=== PATIENT | female | born 1975 | race Caucasian/White ===

== ENCOUNTER 2024-07-18 20:16 | Emergency (ER) | payer OTHER, MEDICAID, SELFPAY ==
--- NOTE | ~2024-07-18 | CT_ITS ---
CT abdomen pelvis wo con Ordering provider: Kaelyn Hernandez PA-C History: 49 years Female with . r flank pain, lower abd pain, uti . Comparison: None. Technique: CT abdomen and pelvis without IV and without oral contrast. Automated exposure control and iterative reconstruction technique were employed. The dose-length product was 1474.72 mGy-cm. Findings: VISUALIZED LOWER CHEST: Normal. UPPER ABDOMINAL ORGANS: Liver: Hepatomegaly. Gallbladder: Status post cholecystectomy. Spleen: Normal. Stomach/duodenum: Normal. Pancreas: Normal. Adrenals: Normal. Kidneys: Normal. PELVIC ORGANS: The bladder is underfilled. BOWEL AND MESENTERY: Colon: No evidence of diverticulitis. Normal appendix. Small Bowel: Normal. No obstruction. Peritoneum/mesentery: No free air or free fluid. No mesenteric lymphadenopathy. RETROPERITONEUM: Normal aorta. No retroperitoneal lymphadenopathy. MUSCULOSKELETAL: Superficial soft tissues: The superficial soft tissues are normal. Bones: Age appropriate degenerative changes of the spine. IMPRESSION: 1. No evidence of appendicitis, diverticulitis or intestinal obstruction. No renal stones. 2. Hepatomegaly. Reviewed, dictated and finalized at location A. IMPRESSION: 1. No evidence of appendicitis, diverticulitis or intestinal obstruction. No r enal stones. 2. Hepatomegaly.
[2024-07-18 20:23] VITALS: BP 152/64; PULSE 91; RESP 16; TEMP 36.1; O2SAT 100
[2024-07-18 21:03] LABS: Basophils Percent Auto 0.3 % (0.2-1.2); Eosinophils Absolute Auto 0.2 K/mm3 (0-0.3); Hematocrit 40.5 % (37.0-47.0); Hemoglobin 12.7 g/dL (12.0-15.0); Immature Granulocyte Absolute 0.05 K/mm3 (0.00-0.031); Immature Granulocyte Percent A 0.4 % (0-0.5); Lymphocytes Absolute Auto 2.88 K/mm3 (0.9-3.2); Lymphocytes Percent Auto 25.6 % (18.3-44.2); Mean Corpuscular HGB Conc 31.4 g/dl (32-36); Mean Corpuscular Volume 95.5 fl (80-100); Mean Platelet Volume 9.4 fl (7.4-10.4); Monocytes Absolute Auto 0.9 K/mm3 (0.1-0.6); Monocytes Percent Auto 7.7 % (2.6-8.5); Neutrophils Absolute Auto 7.2 K/mm3 (1.3-6.7); Platelet Count Result 347 k/mm3 (150-375); Red Blood Count 4.24 M/mm3 (4.2-5.4); White Blood Count 11.2 K/mm3 (4.5-10.0)
[2024-07-18 21:08] LABS: Add Urine Microscopic? YES; Appearance Urine Cloudy (Clear); Bacteria Urine 4+ /hpf; Bilirubin Urine Negative (Negative); Blood Urine 3+ (Negative); Color Urine Yellow (Yellow); Glucose Urine UA Negative (Negative); Ketones Urine Negative (Negative); Leukocyte Esterase Ur 2+ LEU/UL (Negative); Nitrate Urine Positive (Negative); Non Pathogenic Casts 0-2; Protein Urine 1+ mg/dL (Negative); Squamous Epithelial Cell Urine Occasional /hpf (Few); WBC Urine 51-100 /hpf (0-3); pH Urine 6.5 (5.0-9.0)
[2024-07-18 21:26] LABS: Alanine Aminotransferase 20 U/L (6-35); Albumin Level 3.9 g/dL (3.5-5.1); Alkaline Phosphatase 82 U/L (38-126); Anion Gap 5 mmol/L (4-12); Aspartate Amino Transferase 18 U/L (14-36); Bilirubin,Total 0.1 mg/dL (0.2-1.3); Blood Urea Nitrogen 13 mg/dL (7-17); Calcium 9.3 mg/dL (8.4-10.2); Carbon Dioxide 29 mmol/L (22-30); Chloride 104 mmol/L (98-107); Estimated CRCL calculation 108 ml/min; Estimated Glomerular Filt Rate > 60; Glucose 105 mg/dL (65-110); Potassium 3.8 mmol/L (3.4-5.0); Sodium 138 mmol/L (137-145)
[2024-07-18 21:37] VITALS: BP 124/64; PULSE 67; RESP 16; O2SAT 97
--- OUTSIDE RECORDS SUMMARY | 2024-07-18 21:55 | XMS_ITS | Encounter Summary ---
Author Organization [facility] Address [facility] [place] [address] Care Team Providers Care Warehouse Manager Name Role Phone None, Provider Primary Care Provider Unavaila ble Encounter Details Date Type Department Care Team (Late st Contact Info) Description 06/01/2017 Abstract SMD CONVERSION [address] [facility], [place] [address] , Generic Conversion, Social History Tobacco Use Types Packs/Day Years Used Date Smoking Tobacco: Never Assessed Comments Unknown Sex and Gender Information Value Date Recorded Sex Assigned at Not on file Legal Sex Female 11:17 PM [employer] Gender Identity Not on file Sexual Orientation Not on file documented as of this encounter Plan of Treatment Not on file documented as of this encounter Visit Diagnoses Not on filedocumented in this encounter Care Teams Warehouse Manager Relationship Specialty Start Date End Date None, Provider, PCP - General UNKNOWN PHYSICIAN SPECIALTY 11/19/23 documented as of this encounter
--- OUTSIDE RECORDS SUMMARY | 2024-07-18 21:55 | XMS_ITS | Continuity of Care Document ---
Author Organization Jac [facility]ENSA[facility] Address [address] [facility] [address] [place] [address] Phone Care Team Providers Care Therapy Coordinator Name Role Phone David PT,DPT, Kamala Unavailable Unavaila ble Procedures Procedure Date THERAPEUTIC EXERCISES MANUAL THERAPY FUNC ACTIVITY HOT/COLD PACK PT EVALUATION THERAPEUTIC EXERCISES MANUAL THERAPY FUNC ACTIVITY PT RE-EVALUATION MANUAL THERAPY HOT/COLD PACK THERAPEUTIC EXERCISES MANUAL THERAPY HOT/COLD PACK THERAPEUTIC EXERCISES MANUAL THERAPY HOT/COLD PACK THERAPEUTIC EXERCISES MANUAL THERAPY FUNC ACTIVITY 15 MIN HOT/COLD PACK THERAPEUTIC EXERCISES MANUAL THERAPY FUNC ACTIVITY 15 MIN HOT/COLD PACK PT EVALUATION THERAPEUTIC EXERCISES MANUAL THERAPY FUNC ACTIVITY 15 MIN HOT/COLD PACK Advance Directives Directive Yes / No Effective Date File Name No Information Encounters Encounter Description Practice Location Reason(s) For Visit Diagnoses Date Provider Providers Copied on Encounter Jac [facility]SA[facility], [address], [place], [place], [id number], [place] tel:[phone] [place] No Information 5 David Wray. [address] [place], [address], [place]. tel: [phone] [facility], [address] [address], [place], [place], [id number], [place] tel:[phone] [place] No Information 5 Levi Joo. [address] [place], [address], . tel: [phone] [facility], [address] [address], [place], [place], [id number], [place] tel:[phone] [place] Unspecified site of foot sprainAchilles bursitis or tendinitis 5 Levi Joo. [address] [place], [address], [place]. tel: [phone] [facility], [address] [address], [place], [place], [id number], tel:[phone] [place] No Information 2 3 Aleks Ford. [address] [place], [address], [place]. tel: [phone] Referring Provider: [place], [address]. tel:[phone] [facility], [address] [address], [place], [place], [id number], [place] tel:[phone] [place] No Information 0-201 3 Aleks Ford. [address] [place], [address], [place]. tel: [phone] Referring Provider: Camila Leonard[address] [place], [address]. tel:[phone] [facility], [address] [address], [place], [place], [id number], [place] tel:[phone] [place] No Information 8-201 3 Aleks Ford. [address] [place], [address], . tel: [phone] Referring Provider: Camila Leonard[address] [place], [address]. tel:[phone] [facility], [address] [address], [place], [place], [id number], tel:[phone] [place] No Information 3 Aleks Ford. [facility] [place], [address], . tel: [phone] Referring Provider: Dina Leonard [address] [place], [place], [facility]. tel:[phone] [facility], [address], [id number], tel:[phone] [place] No Information 3 Aleks Ford. [facility] [place], [address], . tel: [phone] Referring Provider: Dina Leonard [address] [place], [place], [facility]. tel:[phone] [facility], [address], [id number], tel:[phone] [place] Prepatellar bursitisDerangement of lateral meniscus, unspecified 3 Aleks [place]. [facility] [place], [address], . tel: [phone] Referring Provider: [place], [address]. tel:[phone] Family History Family Member Type Diagnosis Age At Onset No Information Payers Payer name Insurance type Covered libertarian ID Authoriza tion(s) No Information Social History Type Description Quantity Date Captured Comments Sex Female Smoking Status No Information Chief Complaint And Reason For Visit No Information Reason For Referral Reason For Referral No Information History Of Present Illness Encounter Date Complaint History Of Prese nt Illness No Information Functional Status Date Functional Assessmen t No Information Instructions Date Instruction Additional Infor mation No Information Assessments Type Assessment Date No Information Patient Care Teams Name Effective Dates (start - stop) Status Members No Information
--- OUTSIDE RECORDS SUMMARY | 2024-07-18 21:55 | XMS_ITS | Data Portability ---
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 The patient reports that overall they are mostly bothered by the new onset of pain. She states that she was playing basketball on 11/08/2023, when she unfortunately landed on the concrete with her hand. The patient is looking forward to discussing her plan of care moving forward. Onset: This pain was sudden with onset after a trauma. Duration: This is been going on since the mentioned trauma. Quality: Pain since the trauma overall. Severity: The patient reports the pain is constantly severe. Sleep: The patient's sleep is greatly impacted. Prior Imaging: The patient has had a prior x-ray which we reviewed today. Prior Therapy: The patient has not completed therapy because and the clinical situation is not indicated. Prior Injection: An injection would not be appropriate this clinical situation. Bracing: The patient is currently wearing a brace as directed and is tolerating this well. PHYSICAL EXAM Right hand: No neurovascular compromise of the extremity. Sensation Intact To Light Touch median ulnar radial and axial distributions with the ability to prove motor function of the extremity as well. SILT med uln rad distributions of the hand. No severe skin or wound breakdown. Range of motion was deferred due to the patient's fracture. IMAGING Most recent images reviewed in the computer, I agree with the radiologists interpretation. We had those images available in the room today. Discussed with the patient in detail and referenced any available reports. ASSESSMENT Right 5th metacarpal fracture. PLAN We discussed the overall clinical findings as well as reviewed the patients course in the digital record with the patient. We discussed the expected prognosis and the plan moving forward. We reviewed anything we could change or may have changed along the way with the patient and offered a time for feedback. Both the patient and myself are informed in my estimation, based on the encounter today. We discussed some of the complicating factors that could affect this patient's course fdc. At the end of the conversation, I, again gave the patient a chance to ask any questions and answered them to the best of my ability. We placed any orders together in the room and confirmed our plan for moving forward. The patient is going to continue home care whenever possible and will call us if they worsen. We provided the patient with contact info and offered the patient information to be able to reach back out if they had issues. The patient was comfortable with that plan moving forward. Unfortunately, at this point we are going to move forward with surgical intervention. At this point, we discussed those risks and benefits and the patient opted to proceed. I find this decision to be informed and reasonable based on the patient's overall clinical picture. The patient understands and agrees with this plan of care moving forward and would like to proceed at this time. At the end of this visit, we were diligent to make sure the patient is equipped with our contact information and understands we are here to help them through this process. PLAN TO PROCEED WITH Right ORIF vs CRPP Saturday RISKS AND BENEFITS We had a discussion regarding the risks, benefits, and alternatives of the above proposed procedure. We discussed the findings together in detail and we reviewed them in the room so that the patient had a chance to ask any questions about the findings. We discussed how these findings influenced the selection of the proposed intervention and how that intervention may possibly improve their overall situation. We also discussed the possibility that the intervention does not obtain the desired effect. We had a discussion about the possibility of infection, failure of the surgical procedure, need for further surgery, injury to the bone or soft tissues during the procedure, as well as the possibility of nerve or artery damage from the proposed intervention. We discussed how the patient's medical status could influence the final decision to have surgery based on any input from additional providers. We discussed the patient's medications/condit ions as they listed them. We reviewed the intake for,/computerized medical history/other provider notes together in an attempt to get the most complete medical picture of the patient and discussed additional findings as needed. After our discussion the patient was allowed a chance to ask any questions, and I was allowed to answer them to the best of my ability. After the patient was provided the above information in an honest and open fashion, the patient/family independently decided to proceed with surgery. We provided contact information for our office so that the patient could contact us if they have any questions or would like to discuss the procedure further before we see them again. We discussed that we will perform a secondary audit of the patient's overall condition and readiness for surgery. We discussed that the results of additional evaluation my change out overall plan. We informed the patient that we do a preop audit near the date of surgery and we call them to discuss what we've found. At the end of this discussion, the patient had no additional questions. [email or web address] Not available 11/15/2023 10:13:42 12/02/2023 12/02/2023 HISTORY OF PRESE NT ILLNESS: Today the patient presents today to office today for 2-week followup after a right CRPP of her 5th metacarpal. 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 She is very concerned about her return to work plan due to her financial responsibilities. She asks if we can pull pins today so she can return to work. They have been following incisional care instructions as provided postoperatively and report the incision seems to be healing without incident. There is some expected tenderness, but they are overall happy with their recovery up to this point. We discussed their status at this visit. We discussed alarming signs including infection or other complications in detail. Patient reports no marked issues over the past few weeks except some manageable expected pain. They are here today to discuss the next steps of care. PHYSICAL EXAMINATION: CONST: Alert and oriented. No acute distress. ENT: Able to converse without significant issue. RESP: Breathing quietly on room air. CV: Good peripheral perfusion with a regular rate and acceptable capillary refill. GI: Abdomen not distended. SKIN: No jaundice. Warm and dry. PSYCH: Stable mood and affect. NEURO: No obvious cognitive difficulty. ORTHOPEDIC EXAM: Surgical upper extremity: The incision well-approximated and appropriately healing without evidence of wound break down. Sensation grossly intact across median, ulnar, radial, and lateral antebrachial cutaneous nerve distributions. Motion FingerSome stiffness present but demonstrates active digital flexion and extension with expected level of ability. Hand Wrist range of motion is slightly limited and pronosupination is full Acceptable capillary refill. Incision: acceptable with no signs of infection Reviewed pertinent diagnostic tests, lab work, and imaging. These were reviewed with the patient. Imaging: The imaging available was reviewed with the patient. ASSESSMENT: The patient is overall progressing reasonably well from the above-mentioned procedure PLAN: Wound management: wound care teaching was done I explained the timeline for bony healing and the timeline for pins removal. She was disappointed as she would really like to return to work. I explained that we could certainly provide her with protective bracing if she is able to return to work with restrictions. She is elated with this plan of care and agrees. We also discussed pin site care. We talked about signs and symptoms to be aware of and when to contact our office. We encouraged the patient to contact us with any issues. We discussed how to reach the office. We discussed that we are available for them. We discussed that we are always welcome to inquiries and always happy to see him back. We talked about the portal. They were instructed to call our office with any questions or concerns in the meantime. Followup: Follow up in 3 weeks with repeat imaging and potential pin removal. [email or web address] Not available 12/02/2023 18:16:03 12/11/2023 12/11/2023 HISTORY OF PRESE NT ILLNESS June presents to the office today for a followup after her right small finger closed reduction and purcutaneous pinning. They have been following incisional care instructions as provided postoperatively and report the incision seems to be healing without incident. She mentions that she has been having pain at her pin and is able to move the pin in and out of her hand. We discussed their status at this visit. We discussed alarming signs including infection or other complications in detail. Patient reports no marked issues over the past few weeks except some manageable expected pain. They are here today to discuss the next steps of care. PHYSICAL EXAMINATION CONST: Alert and oriented. No acute distress. ENT: Able to converse without significant issue. RESP: Breathing quietly on room air. CV: Good peripheral perfusion with a regular rate and acceptable capillary refill. GI: Abdomen not distended. SKIN: No jaundice. Warm and dry. PSYCH: Stable mood and affect. NEURO: No obvious cognitive difficulty. ORTHOPEDIC EXAM Right 5th finger: The incision well-approximated and appropriately healing without evidence of wound break down. Sensation grossly intact across median, ulnar, radial, and lateral antebrachial cutaneous nerve distributions. Acceptable capillary refill. The incision is acceptable with no signs of infection. Reviewed pertinent diagnostic tests, lab work, and imaging. These were reviewed with the patient. ASSESSMENT Status post right 5th closed reduction and purcutaneous pinning. PLAN Wound management: We proceeded to pull a pin today, the patient tolerated this well. Pin site care was discussed today. We encouraged the patient to contact us with any issues. We discussed how to reach the office. We discussed that we are available for them. We discussed that we are always welcome to inquiries and always happy to see them back. We talked about the portal. They were instructed to call our office with any questions or concerns in the meantime. We provided the patient with a week of antibiotics today. We will plan for the patient to followup again in 2 weeks to obtain repeat images and discuss their plan of care at that time. The patient understands and agrees with this plan of care moving forward and would like to proceed at this time. At the end of this visit, we were diligent to make sure the patient is equipped with our contact information and understands we are here to help them through this process. [email or web address] Not available 12/12/2023 15:29:06 12/23/2023 12/23/2023 HISTORY OF PRESE NT ILLNESS June presents to the office today for a 6 week followup after her right small finger closed reduction and purcutaneous pinning. They have been following incisional care instructions as provided postoperatively and report the incision seems to be healing without incident. There is some expected tenderness, but they are overall happy with their recovery up to this point. She does mention today that she has nicotine exposure. We discussed their status at this visit. We discussed alarming signs including infection or other complications in detail. Patient reports no marked issues over the past few weeks except some manageable expected pain. They are here today to discuss the next steps of care. PHYSICAL EXAMINATION CONST: Alert and oriented. No acute distress. ENT: Able to converse without significant issue. RESP: Breathing quietly on room air. CV: Good peripheral perfusion with a regular rate and acceptable capillary refill. GI: Abdomen not distended. SKIN: No jaundice. Warm and dry. PSYCH: Stable mood and affect. NEURO: No obvious cognitive difficulty. ORTHOPEDIC EXAM Right 5th finger: The incision well-approximated and appropriately healing without evidence of wound break down. Sensation grossly intact across median, ulnar, radial, and lateral antebrachial cutaneous nerve distributions. Some stiffness present but demonstrates active digital flexion and extension with expected level of ability. Acceptable capillary refill. The incision is acceptable with no signs of infection. Reviewed pertinent diagnostic tests, lab work, and imaging. These were reviewed with the patient. Imaging: The imaging in the computer was reviewed including any new imaging. ASSESSMENT Status post right 5th finger closed reduction and purcutaneous pinning. PLAN Wound management: The pins were removed in the office. We discussed pin site care, the patient tolerated this well. We also discussed scar modalities to include the use of massage with vitamin E cream or can cocoa butter. The patient understands these instructions. We will plan for followup per protocol. Therapy: The patient will be pursuing therapy. We discussed the benefits of occupational hand therapy. We discussed the goals. We discussed the overall clinical picture. We discussed how that may impact their overall outcome. We encouraged the patient to contact us with any issues. We discussed how to reach the office. We discussed that we are available for them. We discussed that we are always welcome to inquiries and always happy to see them back. We talked about the portal. They were instructed to call our office with any questions or concerns in the meantime. 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 We will plan for the patient to followup again in 4-6 weeks to obtain repeat images, discuss therapy and discuss their plan of care at that time. The patient understands and agrees with this plan of care moving forward and would like to proceed at this time. At the end of this visit, we were diligent to make sure the patient is equipped with our contact information and understands we are here to help them through this process. [email or web address] Not available 12/25/2023 11:35:50 02/04/2024 02/04/2024 HISTORY OF PRESE NT ILLNESS: The patient presents today for to the office today for greater than 2 months out from post-op follow-up after a right surgical treatment of a fracture. They have been following incisional care instructions as provided postoperatively and report the incision seems to be healing without incident. She seems to be doing great and is very happy with her progress. She has completed therapy and has been released. We discussed their status at this visit. We discussed alarming signs including infection or other complications in detail. Patient reports no marked issues over the past few weeks except some manageable expected pain. They are here today to discuss the next steps of care. PHYSICAL EXAMINATION: CONST: Alert and oriented. No acute distress. ENT: Able to converse without significant issue. RESP: Breathing quietly on room air. CV: Good peripheral perfusion with a regular rate and acceptable capillary refill. GI: Abdomen not distended. SKIN: No jaundice. Warm and dry. PSYCH: Stable mood and affect. NEURO: No obvious cognitive difficulty. ORTHOPEDIC EXAM: Surgical upper extremity: The incision well-approximated and appropriately healing without evidence of wound break down. Sensation grossly intact across median, ulnar, radial, and lateral antebrachial cutaneous nerve distributions. Motion FingerThe range of motion at the IP and MCP joints is full. Hand Wrist range of motion is full and pronosupination is full Acceptable capillary refill. Incision: acceptable with no signs of infection Reviewed pertinent diagnostic tests, lab work, and imaging. These were reviewed with the patient. Imaging: The imaging available was reviewed with the patient. ASSESSMENT: The patient is overall progressing reasonably well from the above-mentioned procedure PLAN: We also discussed scar modalities to include the use of massage with vitamin E cream or can cocoa butter. The patient understands these instructions. We will plan for follow-up per protocol. We encouraged the patient to contact us with any issues. We discussed how to reach the office. We discussed that we are available for them. We discussed that we are always welcome to inquiries and always happy to see him back. We talked about the portal. They were instructed to call our office with any questions or concerns in the meantime. Followup: Follow-up 6 months [email or web address] Not available 02/04/2024 15:39:18 Plan of Treatment Reminders Order Date Submit Date Provider Last Modified By Organization Details Last Modified Time Details Appointments Establish ed Patient 10.EST 2024 01:20P M Dr. Torsten Davis Not available Not available Not available Lab None recorded. Referral occupatio nal therapist referral - Rt hand exos for FX 2023 [email or web address] Not available 11/13/2023 16:03:11 Procedures None recorded. Surgeries None recorded. Imaging None recorded. Medication Orders tramadol 50 mg tablet 2023 [id number], [address], [place], [place], [id number], 11/14/2023 13:43:30 Patient TargetsNo targets recorded. Patient InstructionsNo instructions recorded. Reason for Referral Occupational Therapist Refer ral for Pain in right hand Rt hand exos for FX Referring Physician: Torsten Davis, Orthopedics, Encounter Date: 11/13/2023 Results Created Date Observation Date Name Description Value Unit Range Abnormal Flag Note LastModifiedBy Organization Detail LastModifiedTime 11/13/1911/13/2023 XR, hand, 3 [place] [address] Teleph one [phone] Name: Shirin Loo [id number] am Date: 2023 Age: 48Phys ician: Manuelito mckinnon MD, Torsten : 1975Ex aminat ion: XR HAND COMPLE TE RIGHT EXAMIN ATION: XR HAND COMPLE TE RIGHT HISTOR Y: Injury to right hand . Follow up imagin g right proxim al 5th metaca rpal fractu re. COMPAR TRISTAN: 024. FINDIN GS: There is redemo nstrat ion of a commin uted intra- articu lar fractu re involv ing the base of the fifth metaca rpal. There is mild displa cement of fractu re fragme nts. Overal l appear ance is simila r to the prior study. No disloc ations . IMPRES MELIZA: Fractu re at the base of the fifth metaca rpal simila r in appear ance to the previo us study. Electr onical ly signed in [employer] cribe by: Michael Prieto MD on:10/17 9:43 AM cc: Page PAGE 1 of [facility] 1 [email or web address] Sc Only - [facility] Radiology [address] [place], [address], 11/21/2023 23:09:40 11/13/19 24 11/07/2023 XR, forea rm No observ ation record ed. [email or web address] Not Available 2023 18:27:38 11/13/19 24 11/07/2023 XR, wrist , 3 or more view No observ ation record ed. [email or web address] Not Available 2023 18:28:58 12/02/19 24 12/02/2023 XR, hand, 3 [place] [address] Teleph one [phone] Name: Eze June [id number] am Date: 2023 Age: 48Phys ician: Armstr LILIANA tapia, Asmita : 1975Ex aminat ion: XR HAND COMPLE TE RIGHT EXAMIN ATION: Right hand x-ray, 3 views HISTOR Y: Follow up 2 weeks post-o p right hand surger y. COMPAR TRISTAN: 024 FINDIN GS: Cast materi al overli es the right hand which obscur es osseou s detail . Percut aneous pins are presen t throug h the fifth metaca rpal. 4 pins are presen t total. Commin uted right fifth metaca rpal base fractu re is again noted. 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 Electr onical ly signed in [employer] cribe by: PARTH MILLER MD on:11/16 3:32 PM cc: Page PAGE 1 of [facility] 1 [email or web address] Sc Only - S c Radiology [address] [place], [address], 12/09/2023 10:35:19 10/08/20 24 12/23/2023 XR, hand, 3 or more view [facility] [address] [address] Teleph one Name: Shirin Loo [id number] am Date: 2023 Age: 48Phys ician: Manuelito mckinnon MD, David : 1975Ex aminat ion: XR HAND COMPLE TE RIGHT EXAM: XR HAND COMPLE TE RIGHT HISTOR Y: 6 week follow up for right hand surger y after a basket ball injury to hand. COMPAR TRISTAN: 024 FINDIN GS: Splint ing materi al has been remove d. The patien t is status post engineering supervisor al fixati on of a fifth metaca rpal fractu re with hardwa re patrizia sing the fourth and fifth metata rsals. Two of the fixati on pins of been remove d. The hardwa re is intact . The osseou s alignm ent is unchan ged. No new fractu res are seen. IMPRES MELIZA: Status post engineering supervisor al fixati on of fifth metaca rpal fractu re withou t compli cation Electr onical ly signed in [employer] cribe by: ARIANA Horton MD on:12/24/2023 7:51 AM cc: Page PAGE 1 of [facility] 1 [email or web address] Sc Only - [facility] Radiology [address] [place] [address], [id number], 01/09/2024 23:03:47 02/04/20 24 02/04/2024 XR, hand, 3 or more view [facility] [address] [address] Teleph one Name: Shirin Loo [id number] am Date: 2023 Age: 48Phys ician: Manuelito mckinnon MD, David : 1975Ex aminat ion: XR HAND COMPLE TE RIGHT EXAM: XR HAND COMPLE TE RIGHT HISTOR Y: Post-o p follow up on right 5th MCP ORIF, date of surger y was 11/19/23 . TECHNI QUE: 3 views the right hand. COMPAR TRISTAN: Radiog raphs of the right hand 024. FINDIN GS: Interv al remova l of the fixati ng pins patrizia sing the fifth and fourth metaca rpals. There are ghost tracks from the prior fixati ng pins. There has been furthe r callus format ion of the fractu re at the base of the fifth metaca rpal. No new fractu re is seen. IMPRES MELIZA: 1. Healin g fractu re of the base of the fifth metaca rpal. 2. Interv al remova l of the fixati ng pins. Ghost tracts are seen. Electr onical ly signed in [employer] cribe by: Samantha Wharton on: 4 2:50 PM cc: Page PAGE [facility] 1 [email or web address] Sc Only - [facility] [address] [place] [address], [id number], 02/06/2024 23:04:42 Result Notes None recorded. Problems Name Problem SNOMED Code Status Onset Date Resolution Date Notes Provider Name and Address Organization Details Recorded Time Pain in right hand 8170385452970 09 Active [address] [facility] 4 13:07:30 Closed fracture of base of fifth metacarpal 250278864 Active [address] 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 4 17:00:34 Postoperati ve pain 201149610 Active [address] [facility] 4 16:51:19 Closed fracture of fifth metacarpal 780444522 Active [address] [facility] 02:25:31 Notes:Some problems listed i n Document: #[id number] could not be added to this patient's chart. Please review this document and add these problems to the patient's chart manually as needed. Problem Notes None recorded. Procedures Surgical History Date Name Laterality Status Provider Name and Address Organization Details Recorded Time Removal of gallbladder completed Not Available Health Note 01/28/2024 15:43:02 Partial hysterectomy completed Not Available Health Note 01/28/2024 15:43:02 Imaging Results Imaging Date Name Status LastModified by Organiz ation Details LastModified Time 11/13/2023 XR, hand, 3 or more view completed [email or web address] [facility] Only - [facility] [address] [place] [address], [id number], 11/21/2023 23:09:40 11/07/2023 XR, forearm completed Information n ot available 11/13/2023 18:27:38 11/07/2023 XR, wrist, 3 or more view completed Information not available 11/13/2023 18:28:58 12/02/2023 XR, hand, 3 or more view completed [email or web address] [facility] Only [facility] [address] [place] [address], [id number], 12/09/2023 10:35:19 12/23/2023 XR, hand, 3 or more view completed [email or web address] [facility] Only - [facility] [address] [place] [address], [id number], 01/09/2024 23:03:47 02/04/2024 XR, hand, 3 or more view completed [email or web address] [facility] Only - [facility] [address] [place] [address], [id number], 02/06/2024 23:04:42 Procedure Notes None recorded. Medical Equipment None Reported. Allergies Allergen ID Allergen Name Allergen Category Reaction Reaction Severity Criticality Documentation Date Start Date Code Code System Note Provider Name and Address Organization Details Recorded Time 8767735 codeine medicatio n Not available Not available Not available 04/17/20232014 2670 RxNorm Comme nt: React ion Date: 25 Jul 2009 ; Not Available [facility] 04[facility] Medications Name Sig Start Date Stop Date Status Note LastModified by Organization Details LastModified Time cyclobenzapr ine 10 mg tablet TAKE 1 TABLET BY MOUTH THREE TIMES DAILY NEEDED FOR MUSCLE SPASM active Not Available Not Available No t Available hydrocodone 5 mg-acetamino phen 325 mg tablet TAKE 1 TABLET BY MOUTH EVERY 6 HOURS FOR 2 DAYS NEEDED FOR PAIN . RISK OF ADDICTION AND DROWSINESS active Not Available Not Available N ot Available meloxicam 15 mg tablet TAKE 1 TABLET BY MOUTH ONCE DAILY active Not Available Not Available No t Available tramadol 50 mg tablet TAKE 1 TABLET BY MOUTH EVERY 4 TO 6 HOURS NEEDED FOR PAIN. MAX OF 4 TABS PER DAY active Not Available Not Available No t Available ketorolac 10 mg tablet TAKE 1 TABLET BY MOUTH THREE TIMES DAILY FOR 5 DAYS NEEDED FOR PAIN active Not Available Not Available No t Available benzonatate 100 mg capsule TAKE 1 TO 2 CAPSULES BY MOUTH THREE TIMES DAILY NEEDED FOR COUGH FOR 5 DAYS active Not Available Not Available N ot Available cephalexin 500 mg capsule TAKE 1 CAPSULE BY MOUTH THREE TIMES DAILY FOR 3 DAYS active Not Available Not Available N ot Available ergocalcifer ol (vitamin D2) 1,250 mcg (50,000 unit) capsule TAKE 1 CAPSULE BY MOUTH ONCE A WEEK active Not Available Not Available No t Available Vitals None Recorded Social History Question Answer Notes LastModified by Organizat ion Details LastModified Time Tobacco Smoking Status Current Every Day Smoker Not Available Health Note 01/28/2024 15:43:02 Do You Have An Advance Directive? No [email or web address] Information not available 01/28/2024 What Is Your Level Of Alcohol Consumption? Occasional [email or web address] Information not available 01/28/2024 How Many Times Per Week Do You Consume Alcohol? Less Than 1 Time Per Week [email or web address] Information not available 01/28/2024 What Is Your Level Of Caffeine Consumption? Moderate [email or web address] Information not available 01/28/2024 Are You Currently Employed? 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 1-2 Times Per Week [email or web address] Information not available 01/28/2024 E-cigarettes Or Vaporization Device? Uses Nicotine Containing Device [email or web address] Information not available 01/28/2024 How Many Packs Per Day (PPD)? 1/4 Pack Per Day [email or web address] Information not available 01/28/2024 How Long Have You Smoked? 17 Yrs Old [email or web address] Information not available 01/28/2024 What Was The Date Of Your Most Recent Tobacco Screening? 02/04/2024 [email or web address] Information not available 01/28/2024 What Is Your Relationship Status? Single [email or web address] Information not available 01/28/2024 Do You Use Any Illicit Or Recreational Drugs? No [email or web address] Information not available 01/28/2024 Sex: Unknown Functional Status Question Answer Note LastModified by Organization D etails LastModified Time What is your exercise level? Moderate [email or web address] Information not available 01/28/2024 Mental Status None recorded. Family History Relationship Description Onset Age of this Age Resolved Age Notes LastModified by Organization Details LastModified Time Maternal Grandfather Arthritis [email or web address] Not available 01/16 15:43:01 Maternal Grandfather Family history of malignant neoplasm [email or web address] Not available 2023 15:43:01 Maternal Grandfather Diabetes mellitus [email or web address] Not available 2023 15:43:01 Maternal Grandfather Hypertensive disorder [email or web address] Not available 2023 15:43:01 Father Family history of malignant neoplasm [email or web address] Not available 2023 15:43:01 Father Hypertensive disorder [email or web address] Not available 2023 15:43:01 Father Hypercholest erolemia [email or web address] Not available 2023 15:43:01 Maternal Grandmother Family history of malignant neoplasm [email or web address] Not available 2023 15:43:01 Paternal Grandmother Family history of malignant neoplasm [email or web address] Not available 2023 15:43:01 Mother Disorder of thyroid gland [email or web address] Not available 2023 15:43:01 Medical History Condition Response High Blood Pressure N COPD N Depression N Anxiety Disorder N Arthritis N Cancer N Stroke N Fibromyalgia N Kidney Disease N Attention-deficit Hyperactivity Disorder N Thyroid Problems N Anemia N Diabetes N Bleeding Disorder N Hyperlipidemia N Asthma N Seizures N Heart Disease N Osteoporosis N Gynecological HistoryNo gynecological history recorded. Obstetrics History GPAL:G 0 P 0 0 0 0 Past Encounters Encounter ID Performer Location Encounter Start Date Encounter Closed Date Diagnosis/Indication Diagnosis SNOMED-CT Code Diagnosis ICD10 Code Diagnosis Note [id number] Torsten Davis MD [facility] [address] [place] [address],[address] [place] [address] 11/13/2023 09:56:30 11/13/2023 11:36:37 Pain in right hand [id number] 79385 M79.641 Closed fra cture of base of fifth metacarpal 600756571 S62.316A Additional diagnosis detail: Closed displaced fracture of base of fifth metacarpal bone of right hand, initial encounter Fall W19.XXXA Additional diagnosis detail: Fall, initial encounter Physical a ctivity finding 576547374 Y93.67 Additional diagnosis detail: Activity, basketball [id number] Claudia Sy, OTR [address] [facility]) [address] [place] [address],[place] [address] 11/13/2023 11:23:30 12/16/2023 15:42:38 [id number] Asmita Powers APRN, [employer] [facility] [address] [place] [address],[address] [place] [address] 12/02/2023 15:35:13 12/02/2023 17:07:54 [id number] Torsten Davis MD [address] [facility] [place] [address] [place] [address],[address] [place] [address] 12/11/2023 16:38:58 12/12/2023 18:02:37 Postoperative visit 829978755 Z48.89 History of orthopedic surgery 3071295031 9101 Z47.2 Additional diagnosis detail: Encounter for removal of internal fixation device [id number] Torsten Davis MD [address] [address] [place] [address],[address] [place] [address] 12/23/2023 16:52:27 12/30/2023 04:20:57 Closed fracture of fifth metacarpal 623462005 S62.306D Additional diagnosis detail: Closed displaced fracture of fifth metacarpal bone of right hand with routine healing, unspecifie d portion of metacarpal , subsequent encounter History of orthopedic surgery 7873636757 9101 Z47.2 Additional diagnosis detail: Encounter for removal of internal fixation device [id number] Torsten Davis MD [facility] ([place]) [address] [place] [address] 02/04/2024 14:57:10 02/04/2024 17:26:37 Postoperative visit 315574092 Z48.89 Health Concerns Section Related Observation LastModified by Organization Detai ls LastModified Time None Recorded Concern Status LastModified by Organization Details LastModified Time None Recorded Advance Directives Directive N: Payers Encounter Date Sequence Insurance Name Policy Number Policy Iraheta Covered Member ID Iraheta Member ID Guarantor Name 11/13/2023 1 *SELF PAY* Ap ril Mayra Eze 12/02/2023 1 [facility] June Eber Eze [id number] June Mayra Loo 12/11/2023 1 [facility] ([place]) [place] June M Eze [id number] June Mayra Anayalin 12/23/2023 1 [employer]) [place] June M Eze [id number] June Mayra Loo 02/04/2024 1 [facility] [place] June Eber Eze [id number] June Mayra Loo 02/04/2024 1 [place] [employer] June Eber Loo [id number] June Mayra Loo Notes Date Note Type Note Provider Name and Address Organization Details Recorded Time text/html June Ezeis a 48 year oldfemalepresenting for care. Torsten Davis MD [address] [place] [address], [phone], [facility] 02/12/2024 12:21:52 OBGyn Episode No OBEpisode recorded.
--- OUTSIDE RECORDS SUMMARY | 2024-07-18 21:55 | XMS_ITS | Data Portability ---
Author Organization [facility] [place] Address [address] [place] [address] Assessment Encounter Date Assessment Date Assessment LastModified by Organization Details LastModified Time 05/14/2020 05/14/2020 Annual gynecological exam performed. Patient will come back in a year unless there are new symptoms. [email or web address] Not available 05/14/2020 11:51:55 Plan of Treatment Reminders Order Date Submit Date Provider Last Modified By Organization Details Last Modified Time Details Appointments None record ed. Lab None record ed. Referral None record ed. Procedures None record ed. Surgeries None record ed. Imaging None record ed. Medication Orders None record ed. Patient TargetsNo targets recorded. Patient Instructions Encounter Date Encounter Id Patient Instructions Last Modified By Organization Details Last Modified Time 05/14/2020 [id number] [email or web address] Not available 12:42:46 Reason for Referral None Reported. Procedures Surgical History Date Name Laterality Status Provider Name and Address Organization Details Recorded Time 03/18/19 19 thumb surgery completed Guera Em [facility] 05/14/2020 11:54:21 03/18/19 14 Total Hysterectomy completed [facility] 05/14/2020 11:53:57 03/18/[address] [facility] 05/14/2020 11:53:50 Imaging Results None recorded. Procedure Notes None recorded. Medical Equipment None Reported. Allergies Allergen ID Allergen Name Allergen Category Reaction Reaction Severity Criticality Documentation Date Start Date Code Code System Note Provider Name and Address Organization Details Recorded Time 81097 codeine medicatio n Not available Not available Not available 05/14/2020 2670 RxNorm Guera Em [facility] 11:52:17 Medications Name Sig Start Date Stop Date Status Note LastModified by Organization Details LastModified Time hydrocodone 5 mg-acetamin ophen 325 mg tablet TAKE 1 TABLET BY MOUTH EVERY 6 HOURS NEEDED FOR PAIN 05/14 completed Not Available Not Available Not Available lidocaine HCl 2 % mucosal jelly APPLY TOPICALLY THREE TIMES DAILY 05/14 completed Not Available Not Available Not Available sulfamethox azole 800 mg-trimetho prim 160 mg tablet TAKE 1 TABLET BY MOUTH TWICE DAILY FOR 7 DAYS 05/14 completed Not Available Not Available Not Available Euthyrox 25 mcg tablet TAKE 1 TABLET BY MOUTH IN THE ALUMINUM SIDING MECHANIC BEFORE BREAKFAST 05/14 completed Not Available Not Available Not Available Vitals Date Recorded Body height Body mass index (BMI) Body weight Provider Name and Address Organization Details Last Updated DateTime 05/14/2020 177.8 cm 48.4 kg/m2 732737.63 g Guera Em [facility] 05/14/2020 11:58:56 Date Recorded Systolic blood pressure Diastolic blood pressure Provider Name and Address Organization Details Last Updated DateTime 05/14/2020 130 mm[Hg] 80 mm[Hg] Tanya Wang, [facility]- [address], [place], [address], [facility] 05/14/2020 12:40:07 Social History None recorded. Functional Status None recorded. Mental Status None recorded. Family History Relationship Description Onset Age of this Age Resolved Age Notes LastModified by Organization Details LastModified Time Maternal Grandfather Heart disease [email or web address] Not available 2020 11:52:56 Maternal Grandfather Diabetes mellitus [email or web address] Not available 2020 11:53:01 Maternal Grandfather Hypercholest erolemia [email or web address] Not available 2020 11:53:10 Maternal Grandfather Hypertensive disorder [email or web address] Not available 2020 11:53:18 Father Hypercholest erolemia [email or web address] Not available 2020 11:53:10 Father Hypertensive disorder [email or web address] Not available 2020 11:53:18 Paternal Grandmother Carcinoma in situ of lung [email or web address] Not available 11:53:29 Mother Disorder of thyroid gland [email or web address] Not available 2020 11:53:38 Medical History Condition Response Psychiatric Illness Y Gynecological History Statement/Question Response Current Control Method Hysterectom y Obstetrics History GPAL:G 0 P 0 0 0 0 Past Encounters Encounter ID Performer Location Encounter Start Date Encounter Closed Date Diagnosis/Indication Diagnosis SNOMED-CT Code Diagnosis ICD10 Code Diagnosis Note [id number] Tanya Wang [facility] [address] [address] 05/14/2020 11:49:31 05/16/2020 13:56:38 Gynecologic examination 34348614 Z01.419 Suggested Calcium with Vitamin D 1200-1500m g daily. Patient advised to get an annual flu shot in the fall and she could obtain at [facility] or [facility] care clinic. Also to obtain TDap vaccinatio n if you have not had one in the last 10 years. Recommend yearly mammograms . Encouraged monthly self breast exams. Encourage safe sexual practices, to use condoms and limit partners if not already in a monogamous relationsh ip. Engage in daily exercise of low impact aerobic exercise 45-60 minutes 4-5 times weekly. Avoid tobacco and illicit drugs as well as using moderation with alcohol intake less than 1-2 8 oz beverages daily. This lifestyle behavior pattern will lead to less health conditions and longer life span. If BMI greater than 25 weight watchers or dietary consult advised. All questions have been answered. Patient appears to understand informatio n, but if you have any questions please call or respond to this email. Monogamous relationsh ip-same sex- is nestor Normal pap/hpv Hx D/C pap this year per [facility]p unless otherwise indicated due to non-cancer related partial hyst for aub. Mammo ordered Has PCP she is seeing now. 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 Health Concerns Section Related Observation LastModified by Organization Detai ls LastModified Time None Recorded Concern Status LastModified by Organization Details LastModified Time None Recorded Advance Directives Directive None Recorded Payers Encounter Date Sequence Insurance Name Policy Number Policy Iraheta Covered Member ID Iraheta Member ID Guarantor Name 05/14/2020 1 [employer] June Eze [id number] June [facility] 05/14/2020 2 [employer] [id number] June [facility] [id number] June [facility] Notes Date Note Type Note Provider Name and Address Organization Details Recorded Time 05/14/2020 text/html Annual GYNReport ed bypatient.History: no gynecologic complaints Menstrual cycle:partial hyst 2013 for AUB Urinary symptoms:No hematuria; No incontinence Vulva:No genital lesion Vagina:Normal vaginal discharge Breast:No breast pain; No breast lump; No nipple discharge Current Contraception:[place] gamous relationship (Same sex relationship- is nestor) Sexual complaints:No sexual complaints; No pain during intercourse; Normal libido Menopausal Symptoms:No menopausal symptoms; Normal vaginal lubrication Psychological symptoms:No depression; No anxiety; No PMDD Preventive measures:Encourage self breast examination; Encourage regular exercise; Encourage no tobacco use; Encourage regular mammograms starting age 40; Needs to schedule mammogram JEANETTE Valentine- [address], [place], [address], [facility] 05/14/2020 12:43:23 OBGyn Episode No OBEpisode recorded.
--- OUTSIDE RECORDS SUMMARY | 2024-07-18 21:55 | XMS_ITS | Continuity of Care Document ---
Author Organization [facility], [place] Address [facility] [place] [address] Phone Care Team Providers Care On Awake Counselor Name Role Phone Unavailable Unavailable Unavailable Allergies, Adverse Reactions, Alerts Substance Reaction Status Criticality codeine Unknown Active No Information Medications Medication Instructions Dosage Effective Dates (start - stop) Status Comments Maxitrol 3.5 mg/mL-10,000 unit/mL-0.1% eye drops,suspension instill 1 gtt QID OS x 7 days - Active Procedures Procedure Date EYE EXAM, NEW PATIENT MEDICAL Advance Directives Directive Yes / No Effective Date File Name No Information Encounters Encounter Description Practice Location Reason(s) For Visit Diagnoses Date Provider Providers Copied on Encounter [facility], [facility], [address], [place], [id number], [place] tel:[phone] [facility] redness & pain (chief complaint) redness & pain (chief complaint) Viral conjunctivitis No Information Family History Family Member Type Diagnosis Age At Onset Problem (finding) No family history of Di abetes mellitus Problem (finding) No family history of Ca taracts Father Problem (finding) Cardiovascular disease Father Problem (finding) No history of Hypertens ion Problem (finding) No family history of St roke Problem (finding) No family history of Re spiratory disease Mother Problem (finding) Arthritis Problem (finding) No family hist ory of Macular degeneration Problem (finding) No family history of Gl au[place] Payers Payer name Insurance type Covered constitution party ID Authoriza tion(s) [facility] [id number] Social History Type Description Quantity Date Captured Comments Alcohol Use Details Unknown Caffeine Use Details Unknown Tobacco Use Status Light cigarette smoker Smoking Status Light tobacco smoker Smoking Tobacco Use Details Cigarette: Age Started: 20 Cigarette: 4 Packs per day Sex Female Chief Complaint And Reason For Visit From encounter dated '07/30/2014 10:00'. redness & pain (chief complaint). Description: The 39 Year old female referred by Dr Camilo @ [facility] for redness & pain in the left eye. Pt states symptoms this morning when she woke up. Some greenish matter in the inside corner, denies itching. Va is blurry. Pt denies recent cold or illness. Pt is not using any eye gtts. Pt wears soft cls from [employer], but has not worn in 2 wks. redness & pain (chief complaint) Reason For Referral Reason For Referral No Information History Of Present Illness Encounter Date Complaint History Of Prese nt Illness redness & pain The 39 Year old female referred by Dr Braulio Rodriguez @ [facility] for redness & pain in the left eye. Pt states symptoms this morning when she woke up. Some greenish matter in the inside corner, denies itching. Va is blurry. Pt denies recent cold or illness. Pt is not using any eye gtts. Pt wears soft cls from [employer], but has not worn in 2 wks. Functional Status Date Functional Assessmen t No Information Instructions Date Instruction Additional Infor cris Impression/Plan - Pt has an infection present today. Viral infections are contagious, pt needs to be aware and keep hands and eye as clean as possible. Will have pt start using Maxitrol q 2 hrs OS today then QID OS x 6 days. Follow up - Return in 1 week wit h [facility] for Slamp. Assessments Type Assessment Date assessment Viral conjunctivitis Patient Care Teams Name Effective Dates (start - stop) Status Members No Information
--- OUTSIDE RECORDS SUMMARY | 2024-07-18 21:55 | XMS_ITS | Continuity of Care Document ---
Author Organization [facility] Address [address] [place] [address] Phone Care Team Providers Care Marketing Analytics Analyst Name Role Phone Screen, Clinician Unavailable Unavailable Procedures Procedure Date Unknown Date Of Service Progress Note Therapeutic Activities Therapeutic Exercise Neuromuscular Re-Ed Manual Therapy Hot or Cold Pack Therapeutic Exercise Neuromuscular Re-Ed Therapeutic Activities Manual Therapy Hot or Cold Pack Therapeutic Exercise Therapeutic Activities Neuromuscular Re-Ed Manual Therapy Hot or Cold Pack Therapeutic Exercise Therapeutic Activities Neuromuscular Re-Ed Manual Therapy Hot or Cold Pack Therapeutic Exercise Therapeutic Activities Neuromuscular Re-Ed Manual Therapy Hot or Cold Pack OT Evaluation Moderate Complexity Therapeutic Exercise Hot or Cold Pack Advance Directives Directive Yes / No Effective Date File Name No Information Encounters Encounter Description Practice Location Reason(s) For Visit Diagnoses Date Provider Providers Copied on Encounter [facility], [address], [place], [place], [id number], tel:[phone] [place] No Information Screen Clinician. . Referring Provider: Physician Screen. [facility], [place], [id number], tel:[phone] [place] No Information Godfreystaci Conklin. [address] [facility], [address], [place], [place], [facility], . tel:[phone] Referring Provider: Zafar Arevalo, [address], [place], [address]. tel:[phone] [place] [address] [address], [place], [place], [id number], tel:[phone] [place] No Information Godfrey Katerin. [address] [place] [address], [address], [place], [facility], . tel:[phone] Referring Provider: Zafar Arevalo, [address], [place], [address]. tel:[phone] [place] [address] [address], [place], [place], [id number], tel:[phone] [place] No Information Godfrey Katerin. [address] [place] [address], [address], [place], [facility], . tel:[phone] Referring Provider: Zafar Arevalo [address], [place], [address]. tel:[phone] [place] [address] [address], [place], [place], [id number], tel:[phone] [place] No Information Bekah Conklin. [address] [place] [address], [address], [place], [place], [facility], . tel:[phone] Referring Provider: Zafar Arevalo [address], [place], [place], [facility]. tel:[phone] [address] [address], [place], [place], [id number], tel:[phone] [place] No Information Godfrey Katerin. [address] [place] [address], [address], [place], [place], [facility], . tel:[phone] Referring Provider: Zafar Arevalo, [address] [facility] [address], [place], [address]. tel:[phone] [employer] [place], [address], [place], [place], [id number], [place] tel:[phone] [place] No Information Bekah Conklin. [address], [place], [address], . tel:[phone] Referring Provider: Zafar Arevalo, [address] [address] [facility] [address], [place], [address]. tel:[phone] Family History Family Member Type Diagnosis Age At Onset No Information Payers Payer name Insurance type Covered green party ID Authoriza karime(s) [employer] EPO WC SP [id number] Social History Type Description Quantity Date Captured [...]
--- OUTSIDE RECORDS SUMMARY | 2024-07-18 21:55 | XMS_ITS | Clinical Summary ---
Author Organization [facility] Address [address] [place] [id number] Care Team Providers Care Station Superintendent Name Role Phone None, Provider MD Primary Care Provider Unavaila ble Allergies Active Allergy Reactions Criticality Noted Date Comments Codeine Throat swelling High 01/24/2015 Medications * This document contains information received from the source organization and may not represent a complete record from that organization. traMADol (ULTRAM) 50 MG tablet Take 1 tablet (50 mg total) by mouth every 6 (six) hours as needed for Pain. Active HYDROcodone-acet aminophen (NORCO) 5-325 MG tablet Take 1 tablet by mouth every 6 (six) hours as needed for Pain. 11/07/2023 Active Active Problems Problem Noted Date Diagnosed Date Metacarpal bone fracture 11/19/2023 Displaced fracture of base o f fifth metacarpal bone of right hand 11/19/2023 Family History Medical History Relation Comments Cancer Father Thyroid Disease Mother Relation Status Comments Father Mother Alive Social History Tobacco Use Types Packs/Day Years Used Date Smoking Tobacco: Every Day Cigarettes Smokeless Tobacco: Never Tobacco Cessation:Ready to Q uit: Not Asked; Counseling Given: Not Answered Alcohol Use Standard Drinks/Week Comments Yes 0 (1 standard drink = 0.6 oz pur e alcohol) socially Comments Unknown Sex and Gender Information Value Date Recorded Sex Assigned at Not on file Legal Sex Female 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 Gender Identity Not on file Sexual Orientation Not on file Last Filed Vital Signs Vital Sign Reading Time Taken Comments Blood Pressure 108/60 11/26/2023 11:38 PM CDT Pulse 87 11/26/2023 11:38 PM CDT Temperature 36.6 C (97.9 F) 11/26/2023 11:38 PM CDT Respiratory Rate 18 11/26/2023 11:3 8 PM CDT Oxygen Saturation 100% 11/26/2023 11: 38 PM CDT Inhaled Oxygen Concentration - - Weight 103.1 kg (227 lb 4.7 oz) 024 11:38 PM CDT Height 177.8 cm (5' 10 ) 11/26/2023 11: 38 PM CDT Body Mass Index 32.61 11/26/2023 11:38 PM CDT Plan of Treatment Health Maintenance Due Date Last Done Comments Colorectal Cancer Screening Colonoscopy (10 Years) 1976 Annual Physical 07/06/1979 Hepatitis C 1994 Hepatitis B Vaccines (1 of 3 - 19+ 3-dose series) 07/06/1995 Pneumococcal Vaccine: Pediatrics (0 to 5 Years) and At-Risk Patients (6 to 49 Years) (1 of 2 - PCV) 07/06/1995 Mammogram Screening 2016 Cervical Cancer Screening Pa p Smear (Age 30 to 64) Every 3 Years 05/03/2019 05/03/2016, 05/03/2016, 09/02/2013 Cervical Cancer Screening Pa p with HPV Testing (Age 30 to 64) Every 5 Years 05/03/2021 05/03/2016 Cervical Cancer Screening [facility] HPV 05/03/2021 COVID-19 Vaccine (2023-2 5 season) 2023 11/04/2020, 10/13/2020 DTaP, Tdap and Td Vaccines ( 2 - Td or Tdap) 09/29/2029 09/30/2019 Meningococcal B Vaccine Aged Out No l onger eligible based on patient's age to complete this topic Meningococcal Vaccine Aged Out No yung anisha eligible based on patient's age to complete this topic RSV Immunizations Under 20 Months Aged Out No longer eligible b ased on patient's age to complete this topic Medical Devices Implanted Type Area Enthone Solder Stripper Device Identifier Shelf Expiration Date Model / Serial / Lot K Wire Delmi 6 In X .045 In - [id number] Implanted:Qty: 1 on 11/19/2023 by Torsten Davis MD at [facility] [employer] 12/24/2032 [id number] / / Wire Synthes 1.6mm Ilya 150mm W/[place] - [id number] Implanted:Qty: 1 on 11/19/2023 by Torsten Davis MD at [facility] Wire Right: Hand SYNTHES [id number] / / Procedures Procedure Name Priority Date/Time Associated Diagnosis Comments THINPREP IMAGING SYSTEM PAP Routine 05/03/2016 3:45 PM CHIEF OPERATING ENGINEER from Last 3 Months or Most Recently Relevant to Health Maintenance Results * THINPREP IMAGING SYSTEM PAP (05/03/2016 3:45 PM CHIEF OPERATING ENGINEER) THIN PREP PAP [facility] UP TO EPIC CONVERSION Comment: Patient Name: SHIRIN YEUNG Specimen #: [id number] Procedure Date: 05/03/2016 /Age: 5 1975 (Age: 40) Gender: F Accessioned: 05/04/2016 Address: [address] [place] [address] Reported: 05/08/2016 Encounter: [id number] Location: [facility] Txt[employer]back [facility] Physician(s): Mikey XAVIER. 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 SPECIMEN FORWARDED FOR FURTHER HPV EVALUATION. STATEMENT OF ADEQUACY: SATISFACTORY FOR EVALUATION. [facility] ELIN GAONA (ASCP) [facility]/05/08/2016 Report Electronically Signed Procedures/Addenda HPV mRNA E6/E7: Interpretation: HPV mRNA E6/E7: NO HPV mRNA DETECTED THIS HIGH RISK HPV mRNA ASSAY DETECTS FOURTEEN HIGH-RISK HPV TYPES (16,18,31,33,35,39,45,51,52,56,58,59,66,68) WITHOUT DIFFERENTIATION. MENG GO HPV mRNA E6/E7 Electronically Signed / 05/07/2016 Specimen: THINPREP PAP WITH PENSIONS RETIREMENT PLAN SPECIALIST,HPV REGARDLESS OF RESULT Clinical Diagnosis and History Menstrual/ History: HYSTERECTOMY Specimen Source: Vaginal PAP SMEARS ARE SCREENING TESTS SUBJECT TO BOTH FALSE NEGATIVE AND FALSE POSITIVE RESULTS EVIDENCED BY DATA PUBLISHED IN THE MEDICAL LITERATURE. YOUR PATIENT'S RESULT SHOULD BE INTERPRETED IN THIS CONTEXT, TOGETHER WITH THE PATIENT'S HISTORY AND CLINICAL FINDINGS. 05/03/2016 3:45 PM CHIEF OPERATING ENGINEER Narrative [facility] TO EPIC CONVERSION - 05/03/2016 3:45 PM CHIEF OPERATING ENGINEER [Task Forwarded to ASN] Will you notify her of normal pap results? Thanks! us Bessie SANDERSON PATHOLOGY/CYTOLOGY ORDERABLE S Edited Result - Final [facility] TO EPIC CONVERSION from Last 3 Months or Most Recently Relevant to Health Maintenance Insurance [facility] Care Teams Station Superintendent Relationship Specialty Start Date End Date None, Provider, PCP - General UNKNOWN PHYSICIAN SPECIALTY 11/19/23
[2024-07-18] MEDS: ONDANSETRON INJ 4 MG/2 ML VIAL IV PUSH (21:58)
[2024-07-18] MEDS: SODIUM CHLORIDE 0.9% IV 1,000 ML 999 ML IV CONT (21:58)
[2024-07-18] MEDS: HYDROmorphone HCL INJ (*CRX) 2 MG/ML VIAL 0.5 MG IV PUSH (21:59)
[2024-07-18 22:01] VITALS: BP 123/60; PULSE 72; RESP 18; O2SAT 98
--- NOTE | 2024-07-18 22:32 | ED_ITS ---
HPI - Abdominal Pain General Chief Complaint: Urogenital-Female Stated Complaint: abdominal pain/ hematuria Time Seen by Provider: 07/18/24 21:17 Source: patient Mode of arrival: ambulatory Limitations: no limitations History of Present Illness HPI narrative: Patient is a 49-year-old female who presents the ED with report of lower abdominal and back pain. Patient reports she woke up this morning and noted blood in her urine. Denied dysuria, but feels as though she is not able to fully empty her bladder at times. She then developed pain throughout her lower abdomen and lower back, worse throughout her right flank region throughout the day today. She has tried taking Tylenol and ibuprofen at home without improvement. Denies nausea, vomiting, diarrhea, constipation, fevers. Denies previous history of kidney stones. Denies history of frequent UTIs. Related Data Allergies Allergy/AdvReac Type Severity Reaction Status Date / Time codeine Allergy Intermediate Swelling Verified 07/18/24 20:17 of Lip/Tongue/Throat Review of Systems 2 Review of Systems: All systems reviewed & are unremarkable except as noted in HPI. All systems reviewed & are unremarkable except as noted in HPI and below Exam 2 Narrative: GENERAL: Mildly uncomfortable appearing, obese with BMI of 36.2, non-toxic, in mild acute distress due to pain. HEAD: Normocephalic, atraumatic. RESPIRATORY: Airway patent, respirations nonlabored. Clear to auscultation bilaterally, no rales, rhonchi, wheezing. CARDIOVASCULAR: Regular rate and rhythm without murmurs, rubs, or gallops. ABDOMINAL: Soft, diffuse tenderness throughout abdomen, positive CVA tenderness on R. Nondistended. Normoactive BS. MUSCULOSKELETAL: Moves all extremities. No gross deformities. SKIN: Warm, dry, normal color. NEURO: A&O X3. Speech clear. PSYCHIATRIC: Appropriate mood and affect. Normal interaction. Course Vital Signs Vital signs: Vital Signs Temperature 97 F L 07/18/24 20:23 Pulse Rate 91 07/18/24 20:23 Respiratory Rate 16 07/18/24 20:23 Blood Pressure 152/64 H 07/18/24 20:23 Pulse Oximetry 100 07/18/24 20:23 Oxygen Delivery Room Air 07/18/24 20:23 Temperature 97 F L 07/18/24 20:23 Pulse Rate 72 07/18/24 22:01 Respiratory Rate 18 07/18/24 22:01 Blood Pressure 123/60 07/18/24 22:01 Pulse Oximetry 98 07/18/24 22:01 Oxygen Delivery Room Air 07/18/24 20:23 MDM - Abdominal Pain MDM Narrative Medical decision making narrative: Patient presented to ED with lower abdominal, lower back/right flank pain, hematuria that began this morning. Vital signs are stable upon arrival. Patient is afebrile here. Cbc with blood cell count of 11.2. CMP is unremarkable. UA consistent with infection, positive nitrates, 2+ leuk esterase, 51-100 WBC, 4+ urine bacteria. Sent for culture. Will treat. Given dose of Rocephin in the ED. Additionally given pain control and fluids. CT scan of abdomen/pelvis was obtained and without acute findings, no evidence of ureterolithiasis. No evidence of pyelonephritis. Patient resting comfortably on re-evaluation. She is feeling improved with supportive therapy. Discussed lab and imaging findings, feel she is safe for discharge home at this time with outpatient follow-up. Will discharge on antibiotics. Advised close follow-up with PCP for urine culture results. Given strict return precautions. She is in agreement with plan. Discharged in stable condition. Medical Records Attestation: I reviewed the patient's medical records. Lab Data Attestation: I reviewed the patient's lab results. 07/18/24 20:54 07/18/24 20:54 Labs: Lab Results 07/18/24 Range/Units 20:54 WBC 11.2 H (4.5-10.0) K/mm3 RBC 4.24 (4.2-5.4) M/mm3 Hgb 12.7 (12.0-15.0) g/dL Hct 40.5 (37.0-47.0) % MCV 95.5 (80-100) fl MCH 30.0 (26-34) pg MCHC 31.4 L (32-36) g/dl RDW 13.0 (11.5-14.5) % Plt Count 347 (150-375) k/mm3 MPV 9.4 (7.4-10.4) fl Immature Gran % (Auto) 0.4 (0-0.5) % Neut % (Auto) 64.0 (45.5-73.1) % Lymph % (Auto) 25.6 (18.3-44.2) % [place] % (Auto) 7.7 (2.6-8.5) % Eos % (Auto) 2.0 (0-4.4) % Baso % (Auto) 0.3 (0.2-1.2) % Lymph # (Auto) 2.88 (0.9-3.2) K/mm3 [place] # (Auto) 0.9 H (0.1-0.6) K/mm3 Eos # (Auto) 0.2 (0-0.3) K/mm3 Baso # (Auto) 0.0 (0.0-0.1) K/mm3 Abs Immat Gran (auto) 0.05 H (0.00-0.031) K/mm3 Absolute Neuts (auto) 7.2 H (1.3-6.7) K/mm3 Absolute Nucleated RBC 0.000 (0.0-0.012) K/mm3 Nucleated RBC % 0.0 (0.0-0.2) % Sodium 138 (137-145) mmol/L Potassium 3.8 (3.4-5.0) mmol/L Chloride 104 (98-107) mmol/L Carbon Dioxide 29 (22-30) mmol/L Anion Gap 5 (4-12) mmol/L BUN 13 (7-17) mg/dL Creatinine 0.71 (0.7-1.0) mg/dL Estim Creat Clear Calc 108 ml/min Estimated GFR > 60 (59 - ) Glucose 105 (65-110) mg/dL Calcium 9.3 (8.4-10.2) mg/dL Total Bilirubin 0.1 L (0.2-1.3) mg/dL AST 18 (14-36) U/L ALT 20 (6-35) U/L Alkaline Phosphatase 82 (38-126) U/L Total Protein 7.0 (6.3-8.2) g/dL Albumin 3.9 (3.5-5.1) g/dL Urine Color Yellow (Yellow) Urine Appearance Cloudy H (Clear) Urine pH 6.5 (5.0-9.0) Ur Specific [place] 1.020 (1.001-1.035) Urine Protein 1+ H (Negative) mg/dL Urine Glucose (UA) Negative (Negative) mg/dL Urine Ketones Negative (Negative) mg/dL Ur Blood (Man) 3+ H (Negative) Urine Nitrate Positive H (Negative) Urine Bilirubin Negative (Negative) Urine Urobilinogen 1.0 (<2.0) mg/dL Leukocyte Esterase Rfl 2+ H (Negative) FENG/UL Urine RBC 6-10 H (0-2) /hpf Urine WBC 51-100 H (0-3) /hpf Ur Squamous Epith Cells Occasional (Few) /hpf Urine Bacteria 4+ H /hpf Urine Casts 0-2 Imaging Data Attestation: I personally reviewed and interpreted this imaging study as follows: Radiologist's impression: STAT RAD CT abd/pelvis: Limited due to lack of IV contrast. No acute finding. No urolithiasis. No appendicitis. Discharge Plan Discharge Clinical Impression: Urinary tract infection Qualifiers: Urinary tract infection type: acute cystitis Hematuria presence: with hematuria Qualified Code(s): N30.01 - Acute cystitis with hematuria Patient Disposition: Home Condition: Stable Instructions: Antibiotic Form, Urinary Tract Infection in Women (ED) Additional Instructions: Take antibiotics as prescribed for urinary tract infection. Follow-up with primary care doctor for further evaluation and urine culture results. Continue Tylenol and ibuprofen as needed for pain. Stay well hydrated. Return to the ED if you experience worsening or severe pain, unable to keep down food or drink, persistent fevers, difficulty breathing, difficulty urinating, severe blood in urine, or any other symptoms of concern. Patient Language: Qatari Prescriptions: New cephalexin 500 mg capsule 500 mg PO Q6H 7 Days Qty: 28 0RF Follow-up/Referrals: PHYSICIAN,BARGE CAPTAIN [Primary Care Provider] - Coy Craven MD [Physician] - (PRIMARY CARE) Time of Disposition: 00:55
--- NOTE | 2024-07-18 22:53 | PC.NURSE ---
ok per edp alison to not draw blood cultures prior to starting abx.
[2024-07-18] MEDS: ACETAMINOPHEN 500 MG TABLET 1000 MG PO (23:51)
--- NOTE | 2024-07-19 00:57 | PC.NURSE ---
pt continues to call out and ask for pain medications. EDP notified. Pt called out asking for her iv out. RN advised i would have to re-stick her if we needed to give her medications and pt advised that was fine. Pt called out again, RN notified that PA in room and pt was screaming at her demanding to leave. Discharge papers printed and RN will discharge them.
== END 2024-07-19 01:02 | disposition home or self-care (01) ==
PROVIDERS: Emergency Medicine; Emergency Provider Physician Assistant
DX: N30.01 Acute cystitis with hematuria (principal)
CPT/HCPCS: 36415; 74176; 80053; 81001; 85025; 87086; 87186; 96361; 96365; 96375; 99284; A9270; J0696; J1171; J2405; J7030